=== PATIENT | male | born 2000 | race Two or more races ===

== ENCOUNTER 2024-04-16 09:27 | Emergency (ER) | payer MEDICAID, OTHER ==
[~2024-04-16] VITALS: Ht 180.3 cm; Wt 105.4 kg
[2024-04-16] MEDS: HYDROcodone-ACET 7.5/325MG TAB PO ONE (11:22)
--- NOTE | 2024-04-16 11:23 | ED.PDOC ---
Musculoskeletal HPI Comments 24 year old male presents to the ED with a chief complaint of laceration of LT index finger onset today around 08:00. Patient states he smashed finger in between two metals, noticed "tip of finger was cut." Patient states last tetanus vaccine was 2 years ago. Denies any PMHx as well as headache, dizziness, LOC, chest pain, shortness of breath. No other symptoms or modifying factors present at this time. Chief Complaint: Upper Extremity Time Seen by MD: 10:44 Reviewed Notes: Medications, Allergies Allergies: Coded Allergies: NO KNOWN ALLERGIES (Unverified , 04/16/24) Home Meds Active Scripts Naproxen (NAPROSYN TABLET) 500 Mg Tb, 1 TAB PO BID for 5 Days, #10 TAB 1 Refill Prov:THI BAILON MD 04/16/24 Hydrocodone-Acetaminophen (Hydrocodone Bitartrate/AC 5-325 mg) 1 Tab Tab, 1 TAB PO BID for 5 Days, #10 TAB Prov:THI BAILON MD 04/16/24 Cefdinir (Cefdinir) 300 Mg Cap, 1 CAP PO BID for 10 Days, #20 CAP Prov:THI BAILON MD 04/16/24 Information Source: Patient, Spouse Mode of Arrival: Ambulatory Location: Left Extremity Location: Finger 2 Timing: Hours Prehospital treatment: None Severity: Moderate Able to Move Extremity: Yes Pain: Moderate Mechanism: Metal Cut Circumstances: Accident Onset of Symptoms: Spontaneous Symptoms: Swelling, Pain DVT Risk Factors: NONE Associated signs and symptoms: Laceration Past Medical History PAST MEDICAL HISTORY: Denies Surgical History: Denies all surgeries Family History Family History: Unknown Social History Smoker: Cigarettes Alcohol: Occasionally Drugs: Marijuana Lives In: Assisted Care Constitutional: denies: chills, diaphoresis, fatigue, fever, malaise, sweats, weakness, others EENTM: denies: blurred vision, double vision, ear bleeding, ear discharge, ear drainage, ear pain, ear ringing, eye pain, eye redness, hearing loss, mouth pain, mouth swelling, nasal discharge, nose bleeding, nose congestion, nose pain, photophobia, tearing, throat pain, throat swelling, voice changes, others Respiratory: denies: cough, hemoptysis, orthopnea, SOB at rest, shortness of breath, SOB with excertion, stridor, wheezing, others Cardiovascular: denies: chest pain, dizzy spells, diaphoresis, Dyspnea on exertion, edema, irregular heart beat, left arm pain, lightheadedness, palpitations, PND, syncope, others Gastrointestinal: denies: abdomen distended, abdominal pain, blood streaked bowels, constipated, diarrhea, dysphagia, difficulty swallowing, hematemesis, melena, nausea, poor appetite, poor fluid intake, rectal bleeding, rectal pain, vomiting, others Genitourinary: denies: burning, dysuria, flank pain, frequency, hematuria, inc ontinence, penile discharge, penile sore, pain, testicle pain, testicle swelling, urgency, others Neurological: denies: dizziness, fainting, headache, left sided numbness, left sided weakness, numbness, paresthesia, pre-existing deficit, right sided numbness, right sided weakness, seizure, speech problems, tingling, tremors, weakness, others Musculoskeletal: denies: back pain, gout, joint pain, joint swelling, muscle pain, muscle stiffness, neck pain, others Integumetry: reports: laceration (LT index finger ); denies: bruises, change in color, change in hair/nails, dryness, lesions, lumps, rash, wounds, others Allergic/Immunocompromised: denies: Difficulty Healing, Frequent Infections, Hives, Itching, others Hematologic/Lymphatic: denies: anemia, blood clots, easy bleeding, easy bruising, swollen glands, others Endocrine: denies: excessive hunger, excessive sweating, excessive thirst, excessive urination, flushing, intolerance to cold, intolerance to heat, unexplained weight gain, unexplained weight loss, others Psychiatric: denies: anxiety, bipolar disorder, depression, hopeless, panic d isorder, schizophrenia, sleepless, suicidal, others All Other Systems: Reviewed and Negative Physical Exam General Appearance: Moderate Distress, Normal HEENT: Normal ENT Inspection, Pharynx Normal, TMs Normal Neck: Full Range of Motion, Non-Tender, Normal, Normal Inspection Respiratory: Chest Non-Tender, Lungs Clear, No Accessory Muscle Use, No Respiratory Distress, Normal Breath Sounds Cardiovascular: No Edema, No JVD, No Murmur, No Gallop, Normal Peripheral Pulses, Regular Rate/Rhythm Breast Exam: Deferred Gastrointestinal: No Organomegaly, Non Tender, No Pulsatile Mass, Normal Bowel Sounds, Soft Genitalia: Deferred Pelvic: Deferred Rectal: Deferred Extremities: No calf tenderness, Normal capillary refill, Normal inspection, Normal range of motion, Non-tender, No pedal edema Musculoskeletal : Location: Left Extremity Location: Finger 2 Apperance: Swelling, Deformity, Tenderness: Moderate, Other (Left fingertip injuries with a traumatic amputation and avulsion bone exposed) Neurologic: Alert, front desk lead II-XII nml as Tested, No Motor Deficits, Normal Affect, Normal Mood, No Sensory Deficits Cerebellar Function: Normal Reflexes: Normal Skin: Dry, Normal Color, Warm Peripheral Pulses: 1+ carotid (R), 1+ carotid (L) Lymphatic: No Adenopathy Was a procedure done? Was a procedure done?: No Differential Diagnosis EXT Differential Diagnosis: Fracture, Other (Traumatic amputation and nail avulsion of the distal tuft left index) X-Ray, Labs, Meds, VS Vital Signs Date Time Temp Pulse Resp B/P (MAP) Pulse Ox O2 Delivery O2 Flow Rate FiO2 04/16/24 12:52 97.7 67 16 176/56 (96) 97.7 04/16/24 10:38 66 18 98 Room Air 04/16/24 10:38 66 20 126/84 (98) 98 04/16/24 10:35 Room Air* 0 21 04/16/24 10:09 97.0 66 18 133/83 (100) 96 Current Medications Medications (Trade) Dose Ordered Sig/Brina Route Start Time Stop Time Status Last Admin Acetaminophen/ Hydrocodone Bitart ([place] 7.5/325MG Tab) 1 tab ONCE ONCE PO 04/16/24 11:15 04/16/24 11:16 DC 04/16/24 11:22 [place] [address] Ph: [phone] DIAGNOSTIC IMAGING Diagnostic Imaging Report : [id number] Signed [id number] UNIT: [id number] : 2000 LOC: ER ROOM / BED: / AGE / SEX: 24 / M ADM STATUS: REG ER SERVICE 1107 ORDERING PHYSICIAN: THI BAILON MD PROCEDURE(s): LFIN2 - L 2ND FINGER XRAY REASON: Nail avulsion tip injury ORDER NUMBER(s): [id number], ACCESSION NUMBER(s): [id number] PROCEDURE: Left hand radiographs. INDICATION: Nail avulsion tip injury TECHNIQUE: 4 views of the left hand were obtained. COMPARISON: None FINDINGS: There is acute avulsion of the 2nd distal tuft with traumatic amputation. There is age-indeterminate fracture through the 4th distal tuft. No dislocation. IMPRESSION: 1. Traumatic amputation and Avulsion of the 2nd distal tuft. 2. Age-indeterminate fracture through the 4th distal phalanx. ATED BY: GILLIAN HENDERSON MD DICTATED DATE/TIME: 04/16/24 113 SIGNED BY: GILLIAN HENDERSON MD SIGNED DATE/TIME: 04/16/241130 CC: X-Ray, Labs, Meds, VS Comment Course in the emergency department eventful patient came in with a injury to his left finger mostly the distal phalanx he has a traumatic amputation and nail avulsion of the tuft in the bone is exposed Patient will have Rocephin 1 g You will have a tubular gauze and a splint Will be discharged home to follow up with his PCP Time of 1ST Reevaluation: 11:14 Reevaluation 1ST: Unchanged Patient Education/Counseling: Diagnosis, Treatment, Prognosis Family Education/Counseling: Diagnosis, Treatment, Prognosis Additional Information The following tests were ordered, and results were reviewed by me: L 2ND FINGER XR Additional Information was gathered from interviewing the following independent historians: I reviewed and agreed with the following test results read by other providers: L 2ND FINGER XR I discussed treatment and results with medical personnel and: patient and Departure 1 Departure Time of Disposition: 13:02 Impression: Primary Impression: Traumatic amputation of tip of left index finger Qualified Codes: S68.111A - Complete traumatic metacarpophalangeal amputation of left index finger, initial encounter Additional Impression: Nail avulsion, finger Qualified Codes: S61.309A - Unspecified open wound of unspecified finger with damage to nail, initial encounter Disposition: HOME / SELF CARE / HOMELESS Condition: Fair Additional Instructions: The wound clean and dry e-Prescriptions Naproxen (NAPROSYN TABLET) 500 Mg Tb 1 TAB PO BID for 5 Days, #10 TAB 1 Refill Prov: THI BAILON MD 04/16/24 Hydrocodone-Acetaminophen (Hydrocodone Bitartrate/AC 5-325 mg) 1 Tab Tab 1 TAB PO BID for 5 Days, #10 TAB Prov: THI BAILON MD 04/16/24 Cefdinir (Cefdinir) 300 Mg Cap 1 CAP PO BID for 10 Days, #20 CAP Prov: THI BAILON MD 04/16/24 Discharged With: Self Critical Care Note Critical Care Time?: No Stability Stability form required: No Heart Score Heart Score: Heart Score Response (Comments) Value History N/A 0 EKG N/A 0 Age <45 0 Risk Factors No known risk factors 0 Troponin N/A 0 Total 0 I personally scribed for THI BAILON MD ([email or web address]) on 04/16/24 at 11:23. Electronically submitted by Julianne Preciado ([email or web address]). I personally scribed for THI BAILON MD ([email or web address]) on 04/16/24 at 11:44. Electronically submitted by Julianne Preciado ([email or web address]). THI BAILON MD Apr 16, 2024 11:23
--- NOTE | 2024-04-16 11:33 | DVH ---
PROCEDURE: Left hand radiographs. INDICATION: Nail avulsion tip injury TECHNIQUE: 4 views of the left hand were obtained. COMPARISON: None FINDINGS: There is acute avulsion of the 2nd distal tuft with traumatic amputation. There is age-ind eterminate fracture through the 4th distal tuft. No dislocation. IMPRESSION: 1. Traumatic amputation and Avulsion of the 2nd distal tuft. 2. Age-indeterminate fracture through the 4th distal phalanx.
[2024-04-16] MEDS ORDERED: NAP500T PO (13:08)
[2024-04-16] MEDS ORDERED: CEFD300C2 PO (13:08)
[2024-04-16] MEDS ORDERED: HYDR-4902 PO (13:08)
[2024-04-16] MEDS: cefTRIAXone 1GM/50ML D5W 50 ML IV ONE (13:10)
[2024-04-16 14:38] VITALS: BP 117/69; PULSE 69; RESP 17; TEMP 98.2; O2SAT 95
== END 2024-04-16 14:43 | disposition home or self-care (01) ==
LOC: ER 09:27
DX: S61.211A Laceration without foreign body of left index finger without damage to nail, initial encounter (principal); F17.210 Nicotine dependence, cigarettes, uncomplicated; Z79.899 Other long term (current) drug therapy; X58.XXXA Exposure to other specified factors, initial encounter; Y93.89 Activity, other specified; Y92.89 Other specified places as the place of occurrence of the external cause; Y99.8 Other external cause status
CPT/HCPCS: 73140; 82947; 96365; 99284; J0696; 82962